=== PATIENT | female | born 1975 | race Two or more races ===

== ENCOUNTER 2019-01-04 15:50 | Outpatient (CLI) | payer OTHER ==
[2019-01-04] MEDS ORDERED: MULT-658 PO (16:09)
[2019-01-04 16:35] LABS: BASOPHILS # (AUTO) 0.03 x10^3/uL (0-0.1); BASOPHILS % (AUTO) 0 % (0-1); EOSINOPHILS # (AUTO) 0.09 x10^3/uL (0-0.4); EOSINOPHILS % (AUTO) 1 % (1-7); LYMPHOCYTES # (AUTO) 2.62 x10^3/uL (1-3.4); LYMPHOCYTES % (AUTO) 32 % (22-44); MD NO; MEAN CORPUSCULAR HEMOGLOBIN 29.2 pg (27.0-34.8); MEAN CORPUSCULAR HGB CONC 32.7 g/dL (32.4-35.8); MEAN CORPUSCULAR VOLUME 89.2 fL (80-100); MONOCYTES # (AUTO) 0.53 x10^3/uL (0.2-0.8); MONOCYTES % (AUTO) 7 % (2-9); NEUTROPHILS # (AUTO) 4.87 x10^3/uL (1.8-6.8); NEUTROPHILS % (AUTO) 60 % (42-75); PLATELET COUNT 303 x10^3/uL (130-400); RED BLOOD COUNT 4.18 x10^6/uL (3.82-5.3); RED CELL DISTRIBUTION WIDTH 15.4 % (9.6-15.2)
== END 2019-01-04 23:59 | disposition home or self-care (01) ==
LOC: STAR 15:50
PROVIDERS: ATTEND Obstetrics & Gynecology Female Pelvic Medicine and Reconstructive Surgery
DX: Z01.812 Encounter for preprocedural laboratory examination (principal); D25.9 Leiomyoma of uterus, unspecified
CPT/HCPCS: 36415; 84703; 85025

== ENCOUNTER 2019-01-10 05:10 | Day surgery (SDC) | payer OTHER ==
[2019-01-04 16:10] VITALS: BP 130/84
[~2019-01-10] VITALS: Ht 170.2 cm; Wt 95.8 kg
[~2019-01-10 05:10] MED LIST: MULT-658 PO
[2019-01-10] MEDS ORDERED: LACTATED RINGERS 1,000 ML IV SCH ×2 (05:57→11:05)
[2019-01-10] MEDS ORDERED: CHOL2000 PO (06:00)
[2019-01-10] MEDS ORDERED: CETI10CA PO (06:00)
[2019-01-10] MEDS ORDERED: FLUT9.9S NAS (06:00)
[2019-01-10] MEDS ORDERED: MIDAZOLAM 1 MG/ML, 2ML ONE (06:38)
[2019-01-10] MEDS ORDERED: FENTANYL PF 250 MCG/5ML ONE ×2 (06:38→08:05)
[2019-01-10] MEDS ORDERED: PHENYLEPHRINE 10 MG/ML ONE (06:45)
[2019-01-10] MEDS ORDERED: THROMBIN 5,000 UNIT VIAL TP ONE (06:46)
[2019-01-10] MEDS ORDERED: BUPIVACAINE/PF 0.25% ONE (06:46)
[2019-01-10] MEDS ORDERED: EPINEPHRINE 1 MG/ML, 1ML ONE (06:47)
[2019-01-10] MEDS ORDERED: FLUORESCEIN SODIUM 500 MG/5 ML ONE (06:47)
[2019-01-10] MEDS ORDERED: CEFAZOLIN 1,000 MG ONE (06:48)
[2019-01-10] MEDS ORDERED: GLYCOPYRROLATE 0.2MG/1ML, 5ML ONE (06:48)
[2019-01-10] MEDS ORDERED: ROCURONIUM 10MG/ML,5ML ONE (06:48)
[2019-01-10] MEDS ORDERED: ONDANSETRON 2MG/ML, 2ML ONE (06:48)
[2019-01-10] MEDS ORDERED: NEOSTIGMINE 1 MG/ML, 10ML ONE (06:48)
[2019-01-10] MEDS ORDERED: PROPOFOL 10 MG/ML, 20ML ONE (06:48)
[2019-01-10] MEDS ORDERED: DEXAMETHASONE 4 MG/ML, 1ML ONE (06:48)
[2019-01-10] MEDS ORDERED: KETOROLAC 30 MG/1 ML ONE (06:49)
[2019-01-10] MEDS ORDERED: ACETAMINOPHEN 500 MG TABLET PO ONE (07:00)
[2019-01-10] MEDS ORDERED: GABAPENTIN 300 MG CAPSULE PO ONE (07:00)
[2019-01-10] MEDS ORDERED: SCOPOLAMINE PATCH, 1.5MG PATCH.TD72 TD ONE (07:00)
[2019-01-10] MEDS ORDERED: OXYcodone 5 MG/5 ML ORAL.SOL UDC PO PRN (07:30)
[2019-01-10] MEDS ORDERED: PROMETHAZINE 25 MG/ML, 1ML IM PRN ×2 (07:30)
[2019-01-10] MEDS ORDERED: LABETALOL 5MG/ML, 20ML IV PRN (07:30)
[2019-01-10] MEDS ORDERED: HYDROmorphone 2 MG/ML, 1ML IVPush PRN (07:30)
[2019-01-10] MEDS ORDERED: FENTANYL PF 100 MCG/2ML IV PRN (07:30)
[2019-01-10] MEDS ORDERED: ONDANSETRON 2MG/ML, 2ML IV PRN (07:30)
[2019-01-10] MEDS ORDERED: ONDANSETRON ODT 8 MG PO PRN (07:30)
[2019-01-10] MEDS ORDERED: PROMETHAZINE 12.5 MG SUPP PR PRN (07:30)
[2019-01-10] MEDS ORDERED: MEPERIDINE/PF 25MG/0.5ML IVPush PRN (07:30)
[2019-01-10] MEDS ORDERED: MORPHINE SULFATE 4 MG/ML, 1ML IVPush PRN (07:30)
[2019-01-10] MEDS ORDERED: PROMETHAZINE 25 MG/ML, 1ML IV PRN (07:30)
[2019-01-10] MEDS ORDERED: HALOPERIDOL 5 MG/ML IV PRN (07:30)
[2019-01-10] MEDS ORDERED: PROMETHAZINE 25 MG SUPP PR PRN (07:30)
[2019-01-10] MEDS ORDERED: hydrALAzine 20 MG/ML, 1ML IV PRN (07:30)
[2019-01-10] MEDS ORDERED: VASOPRESSIN 20 UNIT/ML, 1ML ONE (07:33)
[2019-01-10] MEDS ORDERED: FENTANYL PF 100 MCG/2ML ONE ×4 (08:36→10:42)
[2019-01-10] MEDS ORDERED: INTERCEED 3 X 4 INCH DRESSING ONE (09:31)
[2019-01-10] MEDS ORDERED: OXYcodone 5 MG/5 ML ORAL.SOL UDC ONE (11:20)
[2019-01-10] MEDS ORDERED: OXYcodone/APAP 5/325MG TABLET PO PRN (11:30)
[2019-01-10] MEDS ORDERED: ONDANSETRON 2MG/ML, 2ML IVPush PRN (11:30)
[2019-01-10] MEDS ORDERED: PROMETHAZINE 25 MG SUPP PR ONE (11:30)
== END 2019-01-10 17:25 | disposition home or self-care (01) ==
LOC: OUT 05:10
PROVIDERS: ATTEND Obstetrics & Gynecology Female Pelvic Medicine and Reconstructive Surgery
DX: D25.9 Leiomyoma of uterus, unspecified (principal); N39.46 Mixed incontinence; Z72.89 Other problems related to lifestyle; Z79.899 Other long term (current) drug therapy; Z98.890 Other specified postprocedural states
CPT/HCPCS: 58545; 81025; 88305; C1765; J0171; J0690; J1100; J1885; J2250; J2370; J2405; J2704; J2710; J3010; J3490; J7120; Q0162; S2900